=== PATIENT | male | born 1970 | race Caucasian/White ===

== ENCOUNTER → 2023-12-09 | Outpatient (CLI) | payer BC | LOC: M CARPUL 12:45 | PROVIDERS: ATTEND Surgery | DX: R06.02 Shortness of breath (principal) ==

== ENCOUNTER → 2024-06-07 | Outpatient (CLI) | payer BC | LOC: M RAD 10:35 | PROVIDERS: ATTEND Surgery | DX: R06.02 Shortness of breath (principal) ==